=== PATIENT | female | born 1970 | race Caucasian/White ===

== ENCOUNTER 2019-08-15 10:52 | Outpatient (CLI) | payer OTHER, SELFPAY ==
--- NOTE | ~2019-08-15 | MM_ITS ---
EXAMINATION: MM screening [facility] BI w greta HISTORY: Screening mammogram TECHNIQUE: Bilateral rotated lateral CC views. A faintly is a There is a 39 15 Craniocaudal and mediolateral oblique 3-D tomosynthesis images were obtained and synthetic 2-D antoine ges were generated. CAD analysis was submitted and interpreted. COMPARISON: 12/21/2017, 08/24/2016, 07/02/2014 bilateral digital screening mammogram examinations BREAST PARENCHYMAL COMPOSITION: There are scattered areas of fibroglandular density. FINDINGS: Stable bilateral granular asymmetry. Occasional benign calcifications, more on the right. T here is no evidence of suspicious mass, calcification, or architectural distortion to suggest maligna ncy in either breast. There has been no suspicious interval change. IMPRESSION: 1. No mammographic evidence of malignancy. 2. Recommend routine screening mammography in one year. BI-RADS Category 2: Benign finding(s). Reviewed, dictated and finalized at location A. SYSTEM OPERATOR
== END 2019-08-15 10:53 | disposition home or self-care (01) ==
LOC: ANHIMG 10:56
PROVIDERS: PCP Family Medicine; Visit Provider Obstetrics & Gynecology Gynecology
DX: Z12.31 Encounter for screening mammogram for malignant neoplasm of breast (principal)
CPT/HCPCS: 77063; 77067

== ENCOUNTER → 2020-01-23 08:42 | Outpatient (CLI) | payer OTHER, SELFPAY ==
--- NOTE | ~2020-01-23 | XR_ITS ---
XR chest 2V DATE: 01/23/2020 09:00 INDICATION: Cough TECHNIQUE: 2 views COMPARISON: 05/21/2016 2 view chest FINDINGS: Normal heart size. No hilar or mediastinal enlargement. No pulmonary infiltrate or consolid ation, pleural effusion or pulmonary vascular congestion or pneumothorax. Mild degenerative change of the thoracic spine. IMPRESSION: No active cardiopulmonary disease Reviewed, dictated and finalized at location B.
== END ==
PROVIDERS: PCP Family Medicine; Visit Provider Family Medicine
DX: R05 Cough (principal)
CPT/HCPCS: 71046

== ENCOUNTER 2021-01-08 14:31 | Outpatient (CLI) | payer OTHER, SELFPAY ==
--- NOTE | ~2021-01-08 | MM_ITS ---
EXAMINATION: MM screening [facility] BI w greta HISTORY: Screening mammogram, family history of breast cancer in her mother. TECHNIQUE: Craniocaudal and mediolateral oblique 3-D tomosynthesis images were obtained and synthetic 2-D images were generated. CAD analysis was submitted and interpreted. COMPARISON: 08/15/2019, 12/21/2017, 08/24/2016 BREAST PARENCHYMAL COMPOSITION: There are scattered areas of fibroglandular density. FINDINGS: There is no evidence of suspicious mass, calcification, or architectural distortion to sugg est malignancy in either breast. There has been no suspicious interval change. IMPRESSION: 1. No mammographic evidence of malignancy. 2. Recommend routine screening mammography in one year. BI-RADS Category 1: Negative Reviewed, dictated and finalized at location A.
--- NOTE | ~2021-01-08 | US_ITS ---
EXAMINATION: US pelvic complete w TV DATE: 01/08/2021 15:32 INDICATION: Pelvic pain Comparison:Ultrasound dated 02/07/2018 TECHNIQUE: Multiple transabdominal and endovaginal sonographic images of the pelvis performed. FINDINGS: The uterus measures 8.1 x 4.3 x 4.6 cm. There are multiple nabothian cysts, largest measuri ng up to 1.6 cm containing internal calcification, unchanged. Previously demonstrated uterine fibroid not well visualized on the current study. The endometrial complex measures 5 mm. The right ovary measures 3.1 x 2 x 2.2 cm and the left ovary measures 2.5 x 1.7 x 1.6 cm. There are small follicles in each ovary. Normal doppler signal in both ovaries. There is no free fluid in the pelvis. There are no abnormal masses seen on either side. IMPRESSION: 1. Nabothian cysts. Reviewed, dictated and finalized at location A. IMPRESSION: 1. Nabothian cysts.
== END 2021-01-08 14:32 | disposition home or self-care (01) ==
PROVIDERS: PCP Family Medicine; Visit Provider Nurse Practitioner
DX: Z12.31 Encounter for screening mammogram for malignant neoplasm of breast (principal); R10.2 Pelvic and perineal pain; N88.8 Other specified noninflammatory disorders of cervix uteri
CPT/HCPCS: 76830; 76856; 77063; 77067

== ENCOUNTER 2022-08-02 14:07 | Outpatient (CLI) | payer OTHER, SELFPAY ==
--- NOTE | ~2022-08-02 | MM_ITS ---
EXAMINATION: MM screening [facility] BI w greta HISTORY: Screening TECHNIQUE: Craniocaudal and mediolateral oblique 3-D tomosynthesis images were obtained and synthetic 2-D images were generated. CAD analysis was submitted and interpreted. COMPARISON: Comparison to multiple prior studies sequentially, with oldest reviewed study dated 06/05. BREAST PARENCHYMAL COMPOSITION: . Breast composed of scattered areas of fibroglandular density FINDINGS: There is no evidence of suspicious mass, calcification, or architectural distortion to sugg est malignancy in either breast. There has been no suspicious interval change. IMPRESSION: 1. No mammographic evidence of malignancy. 2. Recommend routine screening mammography in one year. BI-RADS Category 1: Negative Reviewed, dictated and finalized at location A. D CARE TECHNICIAN
== END 2022-08-02 14:08 | disposition home or self-care (01) ==
PROVIDERS: PCP Family Medicine; Visit Provider Nurse Practitioner
DX: Z12.31 Encounter for screening mammogram for malignant neoplasm of breast (principal)
CPT/HCPCS: 77063; 77067

== ENCOUNTER 2023-01-17 10:45 | Emergency (ER) | payer OTHER, SELFPAY ==
[2023-01-17] VITALS (23 sets, daily range): BP systolic 118–153; BP diastolic 76–105; PULSE 69–98; RESP 11–23; TEMP 36.6; O2SAT 95–100
--- NOTE | ~2023-01-17 | XR_ITS ---
XR chest 2V DATE: 01/17/2023 12:00 INDICATION: Chest pain TECHNIQUE: PA and lateral views COMPARISON: 01/23/2020 PA and lateral chest FINDINGS: Normal heart size. No hilar or mediastinal enlargement. No pulmonary infiltrate or consolid ation, pleural effusion or pulmonary vascular congestion or pneumothorax. Mild thoracolumbar dextroscoliosis and minimal degenerative spurring of the thoracic and lumbar spine . IMPRESSION: No active cardiopulmonary disease Reviewed, dictated and finalized at location B.
--- NOTE | 2023-01-17 11:33 | ECG_ITS ---
Measurements Intervals [place] Rate: 82 P: 3 NV: 149 QRS: -29 QRSD: 80 T: 1 QT: 367 QTc: 430 Interpretive Statements SINUS RHYTHM RSR' IN V1 OR V2, PROBABLY NORMAL VARIANT DELAYED PRECORDIAL R/S TRANSITION LOW QRS VOLTAGE IN PRECORDIAL LEADS VOLTAGE CRITERIA FOR LVH BASELINE ARTIFACT- I, II, III, AVR, AVL, AVF, V1-V6 BORDERLINE ECG NO PREVIOUS ECG AVAILABLE FOR COMPARISON Electronically Signed On 01-17-2023 15:17:14 CDT by Osei Holbrook D.O.
--- NOTE | 2023-01-17 11:56 | PC.NURSE ---
pt to xray via stretcher at this time
[2023-01-17 12:50] LABS: Basophils Absolute Auto 0.1 K/mm3 (0.0-0.1); Basophils Percent Auto 0.9 % (0.2-1.2); Eosinophils Absolute Auto 0.1 K/mm3 (0-0.3); Eosinophils Percent Auto 0.9 % (0-4.4); Hematocrit 43.8 % (37.0-47.0); Hemoglobin 14.1 g/dL (12.0-15.0); Immature Granulocyte Absolute 0.02 K/mm3 (0.00-0.031); Immature Granulocyte Percent A 0.4 % (0-0.5); Lymphocytes Absolute Auto 1.63 K/mm3 (0.9-3.2); Lymphocytes Percent Auto 29.2 % (18.3-44.2); Mean Corpuscular HGB Conc 32.2 g/dl (32-36); Mean Corpuscular Hemoglobin 30.3 pg (26-34); Mean Corpuscular Volume 94.2 fl (80-100); Monocytes Absolute Auto 0.4 K/mm3 (0.1-0.6); Monocytes Percent Auto 7.3 % (2.6-8.5); Neutrophils Absolute Auto 3.4 K/mm3 (1.3-6.7); Neutrophils Percent Auto 61.3 % (45.5-73.1); Platelet Count Result 211 k/mm3 (150-375); Red Blood Count 4.65 M/mm3 (4.2-5.4); Red Cell Distribution Width 12.9 % (11.5-14.5); White Blood Count 5.6 K/mm3 (4.5-10.0)
[2023-01-17 12:56] LABS: Alanine Aminotransferase 19 U/L (6-35); Albumin Level 4.3 g/dL (3.5-5.1); Alkaline Phosphatase 44 U/L (38-126); Anion Gap 5 mmol/L (8-16); Aspartate Amino Transferase 22 U/L (14-36); Bilirubin,Total 0.6 mg/dL (0.2-1.3); Blood Urea Nitrogen 15 mg/dL (7-17); Calcium 8.9 mg/dL (8.4-10.2); Carbon Dioxide 31 mmol/L (22-30); Chloride 103 mmol/L (98-107); Estimated CRCL calculation 92 ml/min; Estimated Glomerular Filt Rate > 60; Glucose 102 mg/dL (65-110); Lipase 69 U/L (23-300); Sodium 139 mmol/L (137-145)
[2023-01-17 13:06] LABS: Troponin I < 0.012 ng/mL (0.000-0.034)
--- NOTE | 2023-01-17 13:23 | ED.ARRPALP ---
HPI - Arrhythmia/Palpitations General Chief Complaint: Arrhythmia/Palpitations Stated Complaint: palpatations, nausea Time Seen by Provider: 01/17/23 12:05 History of Present Illness HPI narrative: Patient is a 52-year-old female presenting with palpitations. Patient states that for the last month or so she has been experiencing episodes of palpitations, diaphoresis, chest discomfort. States that it seems to be triggered by the heat and she is a very active outdoors person. States that she does have a history of heat triggered migraines. States that she called her PCP to make an appointment today and they told her to come to the ER for evaluation. Currently she denies any complaints. No recent fevers or chills, numbness or weakness, cough, shortness of breath, abdominal pain, diarrhea, dysuria, leg swelling. States that she does feel nauseated with these episodes and has thrown up a couple of times. Related Data Allergies Allergy/AdvReac Type Severity Reaction Status Date / Time No Known Allergies Allergy Verified 01/17/23 11:24 Review of Systems Review of Systems: All systems reviewed & are unremarkable except as noted in HPI and below Exam Narrative: GENERAL: Well-appearing, well-nourished, and in no acute distress. Pleasant and cooperative HEAD: Normocephalic, atraumatic. EYES: PERRLA and EOMI. ENT: Nares clear, no rhinorrhea or epistaxis. Mucous membranes moist. NECK: Supple. CHEST: Clear to auscultation. No respiratory distress. HEART: Regular rate and rhythm. No murmur heard. Normal peripheral pulses. ABDOMEN: Soft, nontender, nondistended EXTREMITIES: Normal range of motion. No edema. SKIN: Warm, dry, no rash. NEURO: No focal deficits. Alert and oriented x3. PSYCH: Normal mood and affect. Course Vital Signs Vital signs: Vital Signs Temperature 97.9 F 01/17/23 10:50 Pulse Rate 98 01/17/23 10:50 Respiratory Rate 18 01/17/23 10:50 Blood Pressure 153/88 H 01/17/23 10:50 Pulse Oximetry 99 01/17/23 10:50 Temperature 97.9 F 01/17/23 10:50 Pulse Rate 78 01/17/23 15:15 Respiratory Rate 23 H 01/17/23 15:15 Blood Pressure 124/78 01/17/23 14:46 Pulse Oximetry 96 01/17/23 15:15 Oxygen Delivery Room Air 01/17/23 11:26 MDM - Arrhythmia/Palpitations MDM Narrative Medical decision making narrative: Patient is a 52-year-old female presenting with episodes of diaphoresis, palpitations, nausea. Vitals are within normal limits. Patient is well-appearing and in no acute distress. Exam is remarkable for the above. EKG per my interpretation shows normal sinus rhythm, left axis deviation, no ST elevations or depressions. Blood work is unremarkable. Troponins are undetectable x2. Chest x-ray shows no acute abnormalities. On reevaluation, the patient is resting comfortably. She denies any complaints at this time. She is asking about migraine medications, will provide the number for neurology for her to follow-up with. Advised that she also follow-up with her PCP. Appropriate return precautions given. Patient voiced understanding and is agreeable with plan. Discharged in stable condition. Differential Diagnosis Differential diagnosis: Likely palpitations, sinus tachycardia, artial fibrillation and other (migraines, headache, dehydration) Medical Records Attestation: I reviewed the patient's medical records. Lab Data Attestation: I reviewed the patient's lab results. 01/17/23 12:39 01/17/23 12:38 Labs: Lab Results 01/17/23 01/17/23 01/17/23 Range/Units 12:38 12:39 14:41 WBC 5.6 (4.5-10.0) K/mm3 RBC 4.65 (4.2-5.4) M/mm3 Hgb 14.1 (12.0-15.0) g/dL Hct 43.8 (37.0-47.0) % MCV 94.2 (80-100) fl MCH 30.3 (26-34) pg MCHC 32.2 (32-36) g/dl RDW 12.9 (11.5-14.5) % Plt Count 211 (150-375) k/mm3 MPV 11.0 H (7.4-10.4) fl Immature Gran % (Auto) 0.4 (0-0.5) % Neut % (Auto) 61.3 (45.5-73.1) % Ly
[2023-01-17 13:25] LABS: Partial Thromboplastin Time 26.9 SECONDS (22.3-36.8)
[2023-01-17] MEDS: LACTATED RINGERS 1,000 ML 999 ML IV CONT (13:33)
[2023-01-17 15:06] LABS: Troponin I < 0.012 ng/mL (0.000-0.034)
== END 2023-01-17 15:27 | disposition home or self-care (01) ==
PROVIDERS: General Practice; Emergency Provider Emergency Medicine; PCP Family Medicine
DX: R00.2 Palpitations (principal); R06.02 Shortness of breath; R51.9 Headache, unspecified
CPT/HCPCS: 36415; 71046; 80053; 83690; 83735; 84443; 84484; 85025; 85610; 85730; 93005; 96360; 99284; J7120

== ENCOUNTER 2023-07-27 09:49 | Outpatient (CLI) | payer OTHER, SELFPAY ==
--- NOTE | ~2023-07-27 | US_ITS ---
Limited Abdominal Sonogram: Real-time sonographic imaging of the right upper quadrant was performed. Clinical History: Abdominal pain Findings: The liver appears normal with no evidence of mass lesion or bile duct dilatation. Main por светлана vein demonstrates normal direction of flow. The gallbladder is well distended, and appears normal with no evidence of gallstone or wall thickening. The common bile duct measures 4 mm. The visualize d pancreas, aorta, and IVC are unremarkable. Impression: No significant abnormality seen. Reviewed, dictated and finalized at location . CTOR OF PHYSICAL EDUCATION Impression: No significant abnormality seen.
== END 2023-07-27 09:50 | disposition home or self-care (01) ==
PROVIDERS: PCP Family Medicine; Visit Provider Family Medicine
DX: R10.9 Unspecified abdominal pain (principal)
CPT/HCPCS: 76705

== ENCOUNTER 2024-06-05 06:40 | Outpatient (CLI) | payer OTHER, SELFPAY ==
--- NOTE | ~2024-06-05 | CT_ITS ---
CT of the Abdomen and Pelvis: Indication: Abdominal pain Technique: 2.5 mm axial scans were obtained through the abdomen and pelvis following intravenous adm inistration of 100 cc of Omnipaque 350. Dose reduction technique was used on this scan by utilizing a utomated exposure control and iterative reconstruction technique. The dose-length product (DLP) was 8 47.81 mGy-cm. Findings: Scans through the lung bases are unremarkable. The liver, spleen, pancreas, gallbladder, adrenals and kidneys are within normal limits. No evidence of aortic aneurysm. No lymphadenopathy. No bowel obstruction or bowel wall thickening. There is no evidence to suggest acute appendicitis. Images through the pelvis were performed. Urinary bladder unremarkable. No pelvic mass seen. No ascit es. Impression: No significant abnormalities seen. Reviewed, dictated and finalized at location . E TOOL OPERATOR Impression: No significant abnormalities seen.
== END 2024-06-05 06:41 | disposition home or self-care (01) ==
PROVIDERS: PCP Nurse Practitioner Family; Visit Provider Nurse Practitioner Family
DX: R10.9 Unspecified abdominal pain (principal)
CPT/HCPCS: 74177; Q9967